=== PATIENT | female | born 1975 | race Caucasian/White ===

== ENCOUNTER 2021-10-25 11:26 | Day surgery (SDC) | payer OTHER, SELFPAY ==
[2021-10-09 09:19] VITALS: BMI 21.0
[2021-10-25] VITALS (9 sets, daily range): BP systolic 127–141; BP diastolic 72–100; PULSE 57–88; RESP 12–17; TEMP 36.7–37; O2SAT 98–100; BMI 21.0
--- NOTE | 2021-10-25 11:56 | WPDHPUPDATE1 ---
History and Physical Update Update Date/Time: 10/25/21 11:56 History and Physical has been reviewed, including an updated exam of the patient. There are NO changes in the patient's condition. Risks, benefits, and alternatives have been discussed and questions answered. Patient agrees to proceed with procedure.
--- NOTE | 2021-10-25 11:57 | SUR.PREOP ---
PT STATES ON MENSTRUAL CYCLE. WEARING TAMPON
--- NOTE | 2021-10-25 12:06 | SUR.PREOP ---
RN WITH PT WHILE DR BARTON
--- NOTE | 2021-10-25 12:06 | SUR.PREOP ---
BALDOB DR HANKINS/CM RN. TRANEXAMIC ACID 1GM IV CAREER DEVELOPER TO OR
--- NOTE | 2021-10-25 12:16 | W.PM.PROC2 ---
Procedure Note - Detailed Date of Procedure 10/25/21 Pre-op Diagnosis Micromastia Post-op Diagnosis Same Procedure Performed Bilateral augmentation mammaplasty Surgeon Kailash Winkler MD Findings Bilateral dual plane 2 augmentation Bilateral Dio Duke SoftTouch 260cc Right - REF# [id number] SN [id number] Left - REF# [id number] SN [id number] Description of Procedure She is here today for bilateral breast augmentation. Previously and again today the risks, benefits, alternatives were discussed in extensive detail. I wanted her to be very realistic about the risks involved as well as expectations. We discussed aftercare and what to monitor for. Made sure answered all of her questions to her satisfaction today and consent was obtained. Marked in the preoperative holding area with their verification. The patient was taken to the operating room placed supine on the operating table. Anesthesia was provided by anesthesiology. A surgical time-out was taken. We cleansed the skin and 1% lidocaine and 0.25% Marcaine with epinephrine was used anesthetize as a field block. She was prepped and draped in a standard sterile fashion. Tegaderm nipple Pryor were placed. A 15 blade used to make an incision along the inframammary fold. Dissection was continued at 45 degree angle until the chest wall as identified. I incised the pectoralis major along its inferior border and completely released the inferior border leaving the medial border intact. I created a subpectoral pocket in the appropriate dimensions based on our preoperative planning for the implant. I then copiously irrigated with saline solution and verified a strict hemostasis. Next the use a triple antibiotic and Betadine containing solution to irrigate the pocket. I washed my gloves with the triple antibiotic and Betadine solution. We washed the implant immediately upon opening it with this solution and only opened it when we needed it. I used implant funnel and no-touch technique. The implant was introduced into the pocket using the funnel. Having verified positioning of the implant this was closed using 2-0 Vicryl followed by 3-0 Monocryl in a running subcuticular 4-0 Monocryl followed by tissue glue. Fluffs and surgical bra were placed. Patient was awoke and taken to PACU without difficulty. All instrument sponge counts were correct at the end of the case. Estimated Blood Loss 20 Drains No Packing No Pathology None sent Complications No immediate complications Condition Stable Disposition PACU
--- NOTE | 2021-10-25 12:20 | P.PNAN_ITS ---
Anes - Initial Pre Proc Eval Procedure: Operation Date: 10/25/21 13:30 Proposed Procedures p Bilateral Breast Augmentation Mammoplasty - Kailash Winkler MD Date/Time: 10/25/21 12:20 Surgeon: aKilash Winkler MD Pre Op Diagnosis: Micromastia Patient Data Age: 46 Gender: F Height: 1.6 m Weight: 54 kg Last Vital Signs Temp 37.0 C 10/25/21 11:52 Pulse 57 L 10/25/21 11:52 Resp 14 10/25/21 11:52 BP 130/89 10/25/21 11:52 Pulse Ox 100 10/25/21 11:52 O2 Del Method Room Air 10/25/21 11:52 Allergies Allergy/AdvReac Type Severity Reaction Status Date / Time acetaminophen AdvReac Unknown Rash Verified 10/25/21 11:37 aspirin AdvReac Unknown Rash Verified 10/25/21 11:37 ibuprofen AdvReac Unknown Rash Verified 10/25/21 11:37 Home Medications Medication Instructions Recorded Confirmed Type cetirizine [Zyrtec] 1 cap PO DAILY 07/29/21 10/25/21 History docusate sodium 100 mg capsule 100 mg PO DAILY #14 caps 10/08/21 10/09/21 Rx (Colace) ondansetron HCl 4 mg tablet 4 mg PO Q8H #21 tabs 10/08/21 10/09/21 Rx carisoprodol 350 mg tablet (Soma) 350 mg PO TID PRN muscle pain #21 10/09/21 10/09/21 Rx tabs oxycodone-acetaminophen 5 mg-325 1 tablet PO Q6H PRN pain #30 tabs 10/09/21 10/09/21 Rx mg tablet (Percocet) Patient hx anesthesia problems: none Family hx anesthesia problems: none Results Review: All pre-operative results and documents have been reviewed as part of the pre- operative evaluation. [facility] Surgical History Surgical History Hx of adenoidectomy Hx of tonsillectomy Social History Social History Smoking packs per day: 0.3 Smoking cigarettes per day: 6.0 Years smoked: 15 Smoking pack-years: 4.50 Smoking status: Former smoker Tobacco type: cigarettes Second hand tobacco smoke exposure: No Smoking end date: 08/16/21 Alcohol intake: current Substance use: former Substance use type: does not use Living arrangements: alone Spiritual care concerns: No Anes - Eval Final PreProcedure Day of Procedure 10/25/21 12:20 Patient weight: normal Heart: regular rate and rhythm Lungs: decreased breath sounds Airway: Mallampati scale class II Neurological: alert and oriented Last oral intake: >/= 8 hours ASA classification: II Emergent: no Anesthetic plan: proceed Anesthesia type and monitoring: general LMA and standard monitoring Results Review: All pre-operative results and documents have been reviewed as part of the pre- operative evaluation. Informed Consent: The patient's anesthetic plan and its attendant risks and benefits were discussed with the patient/family/POA. Questions were solicited and answers provided to the satisfaction of the patient/family/POA.
--- NOTE | 2021-10-25 12:23 | SUR.PREOP ---
500CC IVF BOLUS STARTED PER ORDER
[2021-10-25] MEDS: LACTATED RINGERS 1,000 ML 30 ML IV CONT (12:24)
[2021-10-25] MEDS: LIDO 1%/EPINEPHRINE 1:100,000 20 ML VIAL 40 ML INFILTRATE (13:10)
[2021-10-25] MEDS: BUPIVACAINE HCL 0.25% 50 ML VIAL INFILTRATE (13:10)
[2021-10-25] MEDS: ceFAZolin SODIUM 1 GM VIAL 2 GM IRRIGATION (13:11)
[2021-10-25] MEDS: POVIDONE-IODINE 10% SOLUTION 118 ML BOTTLE 100 ML XX (13:11)
[2021-10-25] MEDS: HYDROmorphone HCL INJ (*CRX) 1 MG/ML SYR 0.5 MG IV PUSH (13:49)
--- NOTE | 2021-10-25 14:30 | WPDANESPN ---
Anes - Prog Note Post-Op Date/Time: 10/25/21 14:30 Cardiovascular status: normal Respiratory status: normal Airway patency: baseline Mental status: baseline Post-Op hydration status: normal Vital Signs: Last Vital Signs Temp 36.7 C 10/25/21 13:24 Pulse 61 10/25/21 14:10 Resp 12 10/25/21 14:10 BP 139/82 10/25/21 14:10 Pulse Ox 99 10/25/21 14:10 O2 Del Method Room Air 10/25/21 14:10 O2 Flow Rate 3 10/25/21 13:55 Pain Score (VAS): 4 I/O: Intake & Output 10/24/21 10/25/21 10/25/21 23:59 07:59 15:59 Intake Total 300 Balance 300 Patient Feedback: Patient satisfied with anesthetic care.
[2021-10-25] MEDS: oxyCODONE HCL (*CRX) 5 MG TAB IR PO (15:01)
== END 2021-10-25 15:08 | disposition home or self-care (01) ==
PROVIDERS: Visit Provider Surgery Plastic and Reconstructive Surgery
PROC: (CPT 19325; principal; 2021-10-25 13:30)
DX: N64.82 Hypoplasia of breast (principal)
CPT/HCPCS: 19325